=== PATIENT | male | born 1970 ===

== ENCOUNTER 2017-02-28 14:04 | Emergency (ER) | payer OTHER, SELFPAY ==
[2017-02-28 14:14] VITALS: RESP 18; TEMP 98.5; O2SAT 100; BMI 21.1
[2017-02-28] MEDS ORDERED: Sodium Chloride 0.9% 1,000 ML IV ONE (15:20)
[2017-02-28] MEDS ORDERED: Sodium Chloride 0.9% 1,000 ML ONE (15:40)
[2017-02-28 15:42] LABS: BASO % 0.7 % (0.0-2.0); EOS # 0.1 K/uL (0.0-0.7); HEMATOCRIT 47.4 % (35.0-51.0); LYMPH % 37.3 % (20.0-40.0); MEAN CELL VOLUME 89.4 fL (80.0-94.0); MEAN CORPUSCULAR HEMOGLOBIN 29.9 pg (27.0-31.0); MEAN CORPUSCULAR HGB CONC 33.4 g/dL (33.0-37.0); MEAN PLATELET VOLUME 12.8 fL (7.2-11.7); MONO # 0.4 K/uL (0.0-0.8); MONO % 7.3 % (0.0-10.0); NRBC % 0.1 % (0.0-2.0); RED CELL DISTRIBUTION WIDTH 13.8 % (11.5-14.5); WHITE BLOOD COUNT 5.3 K/uL (4.8-10.8)
[2017-02-28 15:55] LABS: RBC URINE < 1 /hpf (0-3); URINE BILIRUBIN NEGATIVE (NEGATIVE); URINE BLOOD NEGATIVE (NEGATIVE); URINE COLOR Colorless (YELLOW); URINE GLUCOSE (UA) NORMAL (Normal); URINE KETONE NEGATIVE (NEGATIVE); URINE LEUKOCYTE ESTERASE NEG Leu/uL (Negative); URINE PROTEIN NEGATIVE (NEGATIVE); URINE UROBILINOGEN NORMAL mg/dL (0.2-1.0)
[2017-02-28 15:58] LABS: CHLORIDE 99 mmol/L (98-107); SODIUM 138 mmol/L (132-148)
[2017-02-28 15:59] LABS: POTASSIUM 3.6 mmol/L (3.6-5.2)
[2017-02-28 16:01] LABS: ALB/GLOB RATIO 1.5 (1.0-2.1); ALKALINE PHOSPHATASE 69 U/L (38-126); ALT/SGPT 27 U/L (21-72); AST/SGOT 34 U/L (17-59); BILIRUBIN,TOTAL 0.6 mg/dL (0.2-1.3); BLOOD UREA NITROGEN 8 mg/dL (9-20); CARBON DIOXIDE 27 mmol/L (22-30); GFR AFRICAN-AMERICAN > 60; GLUCOSE,RANDOM 92 mg/dL (75-110); TOTAL PROTEIN 7.8 g/dL (6.3-8.3)
[2017-02-28 16:02] LABS: CALCIUM 8.9 mg/dl (8.6-10.4)
--- NOTE | 2017-02-28 16:15 | C.PDOC ---
History Of Present Illness 47 year old patient presents to the ED complaining of epigastric pain for the past 4 days. Patient states he ran out of Pepcid his PMD prescribed. He has a burning sensation in his chest. The pain is on and off, and non-radiating. Patient denies fever, chills, nausea, vomiting, or shortness of breath. Time Seen by Provider: 02/28/17 14:36 Chief Complaint (Nursing): Abdominal Pain History Per: Patient History/Exam Limitations: no limitations Onset/Duration Of Symptoms: Days (4) Current Symptoms Are (Timing): Still Present Context: Other Pain Scale Rating Of: 5 Location Of Pain/Discomfort: Epigastric Radiation Of Pain To:: None Quality Of Discomfort: "Pain" Exacerbating Factors: None Alleviating Factors: None Last Bowel Movement: Today Recent travel outside of the [place]: No Past Medical History Reviewed: Historical Data, Nursing Documentation, Vital Signs Vital Signs: Last Vital Signs Temp 98.5 F 02/28/17 14:13 Pulse 57 L 02/28/17 16:46 Resp 18 02/28/17 16:46 BP 103/62 02/28/17 16:46 Pulse Ox 100 02/28/17 16:59 Family History: States: No Known Family Hx - Social History Hx Tobacco Use: No Hx Alcohol Use: No (Former use) Hx Substance Use: No - Immunization History Hx Tetanus Toxoid Vaccination: No Hx Influenza Vaccination: No Hx Pneumococcal Vaccination: No Review Of Systems Except As Marked, All Systems Reviewed And Found Negative. Constitutional: Negative for: Fever, Chills Respiratory: Negative for: Shortness of Breath Gastrointestinal: Positive for: Abdominal Pain (epigastric). Negative for: Nausea, Vomiting, Diarrhea Physical Exam - Physical Exam Appears: Non-toxic, No Acute Distress Skin: Warm, Dry, No Rash Head: Atraumatic, Normacephalic Eye(s): bilateral: Normal Inspection, PERRL, EOMI Oral Mucosa: Moist Neck: Normal ROM, Supple Chest: Symmetrical Cardiovascular: Rhythm Regular, No Friction Rub, No Murmur Respiratory: Normal Breath Sounds, No Accessory Muscle Use, No Rales, No Rhonchi , No Wheezing Gastrointestinal/Abdominal: Bowel Sounds (active), Soft, No Tenderness, No Guarding, No Rebound Back: Normal Inspection, No CVA Tenderness Extremity: Normal ROM, No Swelling Neurological/Psych: Oriented x3, Normal Speech, Normal Cognition, Normal Motor, Normal Sensation Gait: Steady ED Course And Treatment - Laboratory Results Result Diagrams: 02/28/17 15:38 02/28/17 15:38 ECG: Interpreted By Me, Viewed By Me ECG Rhythm: Sinus Bradycardia Rate From EC (bpm) O2 Sat by Pulse Oximetry: 100 (room air) Pulse Ox Interpretation: Normal - Other Rad Obstructive series X-Ray: Interpreted by Me Interpretation: Negative chest and abdomen Progress Note: Plan: -EKG. -Labs. -Obstructive series. -Pepcid, Maalox, IV fluids, Zofran Medical Decision Making Medical Decision Making: On re-exam, the patient reports improvement of symptoms. Lungs are CTA, heart is RRR, abdomen is soft, non-tender and patient is tolerating PO well. Patient is ambulatory in the ED with steady gait. Follow up with the medical doctor within 1-2 days, Return if worsened. Disposition - Disposition Referrals: [facility] [Outside] Disposition: HOME/ ROUTINE Disposition Time: 16:56 Condition: GOOD Additional Instructions: Follow up with the medical doctor within 1-2 days, Return if worsened. Prescriptions: Famotidine [Pepcid] 20 mg PO BID #10 tab Omeprazole 20 mg PO DAILY #30 ecc Instructions: Gastritis (ED) Print Language: CAMBODIAN - Clinical Impression Clinical Impression: Abdominal pain - PA / MEDICAL CENTER DIRECTOR / Resident Statement MD/DO has reviewed & agrees with the documentation as recorded. - Scribe Statement The provider has reviewed the documentation as recorded by the Scribe Lucille Ramos All medical record entries made by the Scribe were at my direction and personally dictated by me. I have reviewed the chart and agree that the record accurately reflects my personal performance of the history, physical exam, medical decision making, and the department course for this patient. I have also personally directed, reviewed, and agree with the discharge instructions and disposition.
[2017-02-28] MEDS ORDERED: Alum-Mag Hydrox-Simethicone Susp (30 mL) PO STA (16:19)
[2017-02-28] MEDS ORDERED: Alum-Mag Hydrox-Simethicone Susp (30 mL) ONE (16:22)
[2017-02-28 16:47] VITALS: BP 103/62; PULSE 57
--- NOTE | 2017-02-28 16:48 | RAD ---
PROCEDURE: Radiographs of the chest and abdomen (obstructive series) HISTORY: abd pain COMPARISON: No prior. TECHNIQUE: AP radiograph of the chest, with upright and supine radiographs of the abdomen. FINDINGS: CHEST: Lungs: Clear. Cardiovascular: Normal size heart. No pulmonary vascular congestion. Pleura: No pleural fluid. No pneumothorax. Other findings: None. ABDOMEN AND PELVIS: Bowel: Unremarkable bowel gas pattern. No evidence of mechanical obstruction. Free air: None. Bones: Unremarkable. Other findings: None. IMPRESSION: Unremarkable radiographs of chest and abdomen. No evidence of mechanical bowel obstruction.
--- NOTE | 2017-03-07 13:38 | CARD ---
APPROVED REPORT EKG Measurement Heart [id number] 160P72 [id number] <Conclusion> Poor data quality, interpretation may be adversely affected Sinus bradycardia Otherwise normal ECG
== END 2017-02-28 17:09 | disposition home or self-care (01) ==
LOC: C.ER 14:04
DX: R10.13 Epigastric pain (principal)
CPT/HCPCS: 74022; 80053; 81001; 83690; 85025; 96361; 96374; 96375; 99284; J2405; J7040

== ENCOUNTER 2017-06-06 20:09 | Emergency (ER) | payer SELFPAY ==
[2017-06-06 20:09] VITALS: BMI 21.1
[2017-06-06] MEDS ORDERED: Sodium Chloride 0.9% 1,000 ML IV ONE (20:29)
[2017-06-06 21:10] LABS: BASO # 0.1 K/uL (0.0-0.2); BASO % 1.1 % (0.0-2.0); EOS # 0.1 K/uL (0.0-0.7); EOS % 1.8 % (0.0-4.0); LYMPH # 2.1 K/uL (1.0-4.3); LYMPH % 35.5 % (20.0-40.0); MEAN CELL VOLUME 90.8 fL (80.0-94.0); MEAN CORPUSCULAR HEMOGLOBIN 30.8 pg (27.0-31.0); MEAN PLATELET VOLUME 12.5 fL (7.2-11.7); MONO # 0.5 K/uL (0.0-0.8); MONO % 7.9 % (0.0-10.0); NRBC % 0.1 % (0.0-2.0); RED CELL DISTRIBUTION WIDTH 13.4 % (11.5-14.5); WHITE BLOOD COUNT 5.8 K/uL (4.8-10.8)
[2017-06-06 21:18] LABS: CHLORIDE 102 mmol/L (98-107)
[2017-06-06 21:19] LABS: POTASSIUM 3.7 mmol/L (3.6-5.2); SODIUM 137 mmol/L (132-148)
[2017-06-06 21:21] LABS: GFR AFRICAN-AMERICAN > 60
[2017-06-06 21:22] LABS: ALB/GLOB RATIO 1.2 (1.0-2.1); ALKALINE PHOSPHATASE 87 U/L (38-126); ALT/SGPT 59 U/L (21-72); AST/SGOT 44 U/L (17-59); BILIRUBIN,TOTAL 0.7 mg/dL (0.2-1.3); BLOOD UREA NITROGEN 12 mg/dL (9-20); CALCIUM 8.6 mg/dl (8.6-10.4); CARBON DIOXIDE 26 mmol/L (22-30); GLUCOSE,RANDOM 98 mg/dL (75-110); TOTAL PROTEIN 7.3 g/dL (6.3-8.3)
--- NOTE | 2017-06-06 21:50 | C.PDOC ---
History Of Present Illness A 47 year old male patient comes into the ED with complaints of mild headaches and dizziness for two weeks. The dizziness is intermittent and when it appears it lasts for about few seconds then it resolves. The patient denies any fever, chills, vision changes, nausea, or vomiting. Time Seen by Provider: 06/06/17 20:26 Chief Complaint (Nursing): Headache History Per: Patient History/Exam Limitations: no limitations Onset/Duration Of Symptoms: Days, Intermittent Episodes Current Symptoms Are (Timing): Still Present Quality: Aching Preceeding Symptoms: denies: Visual Disturbances Associated Symptoms: denies: Blurred Vision, Nausea, Vomiting Additional History Per: Patient Past Medical History Reviewed: Historical Data, Nursing Documentation, Vital Signs Vital Signs: Last Vital Signs Temp 97.7 F 06/06/17 20:11 Pulse 59 L 06/06/17 22:45 Resp 20 06/06/17 22:45 BP 93/40 L 06/06/17 22:45 Pulse Ox 97 06/06/17 22:45 - Medical History PMH: No Chronic Diseases Denies: Chronic Kidney Disease Surgical History: No Surg Hx Family History: States: Unknown Family Hx - Social History Hx Tobacco Use: No Hx Alcohol Use: No (Former use) Hx Substance Use: No - Immunization History Hx Tetanus Toxoid Vaccination: No Hx Influenza Vaccination: No Hx Pneumococcal Vaccination: No Review Of Systems Constitutional: Negative for: Fever, Chills Eyes: Negative for: Vision Change Gastrointestinal: Negative for: Nausea, Vomiting Neurological: Positive for: Headache, Dizziness Physical Exam - Physical Exam Appears: Non-toxic, No Acute Distress Skin: Normal Color, Warm, Dry Head: Atraumatic, Normacephalic, No Tenderness Eye(s): bilateral: Normal Inspection, PERRL, EOMI Oral Mucosa: Moist Chest: Symmetrical, No Deformity, No Tenderness Cardiovascular: Rhythm Regular, No Murmur Respiratory: Normal Breath Sounds, No Rales, No Rhonchi, No Wheezing Extremity: Normal ROM, Capillary Refill (less than two seconds ) Neurological/Psych: Oriented x3, Normal Speech, Normal Cognition Gait: Steady ED Course And Treatment - Laboratory Results Result Diagrams: 06/06/17 21:05 06/06/17 21:05 ECG: Interpreted By Me, Viewed By Me ECG Rhythm: Sinus Rhythm Interpretation Of ECG: Normal sinus rhythm of rate 69 BPM. Normal axis. Rate From EC O2 Sat by Pulse Oximetry: 98 (on RA ) Pulse Ox Interpretation: Normal Progress Note: Labs and EKG ordered. Patient received Reglan IV, Toradol IV, IV fluids. Disposition - Disposition Referrals: Luli Horvath, [Non-Staff] - Disposition: HOME/ ROUTINE Disposition Time: 22:20 Condition: GOOD Additional Instructions: Thank you for letting us take care of you today. Your provider was Dr. Randhawa. You were treated for dizziness. The emergency medical care you received today was directed at your acute symptoms. If you were prescribed any medication, please fill it and take as directed. It may take several days for your symptoms to resolve. Return to the Emergency Department if your symptoms worsen, do not improve, or if you have any other problems. Please contact your doctor or call one of the physicians/clinics you have been referred to that are listed on the Patient Visit Information form that is included in your discharge packet. Bring any paperwork you were given at discharge with you along with any medications you are taking to your follow up visit. Our treatment cannot replace ongoing medical care by a primary care provider (PCP) outside of the emergency department. Thank you for allowing the [facility] team to be part of your care today. Follow up with your doctor in 3-4 days for further evaluation and management. Prescriptions: Ibuprofen [Motrin] 600 mg PO Q6 PRN #20 tab PRN Reason: Pain, Moderate (4-7) Meclizine [Meclizine*] 25 mg PO Q6 PRN #20 tab PRN Reason: Dizziness Instructions: Dizziness (ED) Forms: Gen Discharge Inst Greenlandic, [employer] (Hungarian) Print Language: MALAY - Clinical Impression Clinical Impression: Dizziness - Scribe Statement The provider has reviewed the documentation as recorded by the Scribe (Iar Ramos) Provider Attestation: All medical record entries made by the Scribe were at my direction and personally dictated by me. I have reviewed the chart and agree that the record accurately reflects my personal performance of the history, physical exam, medical decision making, and the department course for this patient. I have also personally directed, reviewed, and agree with the discharge instructions and disposition.
[2017-06-07 00:57] VITALS: TEMP 98.1
[2017-06-07 01:05] VITALS: BP 103/62; PULSE 60; RESP 18; O2SAT 100
--- NOTE | 2017-06-09 20:57 | CARD ---
APPROVED REPORT EKG Measurement Heart [id number] [place] 160P72 [id number] <Conclusion> Normal sinus rhythm Normal ECG
== END 2017-06-07 01:13 | disposition home or self-care (01) ==
LOC: C.ER 20:09
DX: R42 Dizziness and giddiness (principal)
CPT/HCPCS: 80053; 84484; 85025; 93005; 96374; 96375; 99285; J1885; J2765; J7040

== ENCOUNTER 2017-07-19 15:34 | Emergency (ER) | payer SELFPAY ==
[2017-07-19 15:34] VITALS: BMI 21.1
[2017-07-19 15:55] VITALS: TEMP 98.7; O2SAT 97
[2017-07-19 16:18] LABS: BASO # 0.1 K/uL (0.0-0.2); EOS # 0.1 K/uL (0.0-0.7); EOS % 1.1 % (0.0-4.0); LYMPH # 2.1 K/uL (1.0-4.3); LYMPH % 35.5 % (20.0-40.0); MEAN CELL VOLUME 89.5 fL (80.0-94.0); MEAN CORPUSCULAR HEMOGLOBIN 30.6 pg (27.0-31.0); MEAN CORPUSCULAR HGB CONC 34.2 g/dL (33.0-37.0); MONO # 0.4 K/uL (0.0-0.8); NRBC % 0.1 % (0.0-2.0); RED CELL DISTRIBUTION WIDTH 13.7 % (11.5-14.5); WHITE BLOOD COUNT 5.9 K/uL (4.8-10.8)
--- NOTE | 2017-07-19 16:57 | C.PDOC ---
History Of Present Illness 47 y/o male is sent to ED from clinic for hematology referral. Pt was seen at clinic today, and was referred to the ER for evaluation of low platelet count of 68 in the blood work done on 06/06/2017. Pt states he has intermittent headache, and dizziness for the past year. Pt is currently asymptomatic. Denies any other active complaints at this time. Time Seen by Provider: 07/19/17 15:39 Chief Complaint (Nursing): Dizziness/Lightheaded History Per: Patient History/Exam Limitations: no limitations Onset/Duration Of Symptoms: Days, Intermittent Episodes Current Symptoms Are (Timing): Gone Fall Associated With With Symptoms: No Severity: None Pain Scale Rating Of: 0 Additional History Per: Patient Past Medical History Reviewed: Historical Data, Nursing Documentation, Vital Signs Vital Signs: Last Vital Signs Temp 98.7 F 07/19/17 15:50 Pulse 81 07/19/17 15:50 Resp 20 07/19/17 15:50 BP 116/73 07/19/17 15:50 Pulse Ox 97 07/19/17 16:57 Family History: States: Unknown Family Hx - Social History Hx Tobacco Use: No Hx Alcohol Use: No (Former use) Hx Substance Use: No - Immunization History Hx Tetanus Toxoid Vaccination: No Hx Influenza Vaccination: No Hx Pneumococcal Vaccination: No Review Of Systems Except As Marked, All Systems Reviewed And Found Negative. Constitutional: Negative for: Fever, Chills Cardiovascular: Negative for: Chest Pain, Palpitations Respiratory: Negative for: Cough, Shortness of Breath Gastrointestinal: Negative for: Nausea, Vomiting, Abdominal Pain Musculoskeletal: Negative for: Neck Pain, Back Pain Skin: Negative for: Rash, Bruising Neurological: Negative for: Weakness, Numbness, Headache, Dizziness Physical Exam - Physical Exam Appears: Non-toxic, No Acute Distress Skin: Warm, Dry, No Rash Head: Atraumatic, Normacephalic Eye(s): bilateral: Normal Inspection, EOMI Oral Mucosa: Moist Neck: Normal ROM, Supple Chest: Symmetrical Cardiovascular: Rhythm Regular, No Murmur Respiratory: Normal Breath Sounds, No Rales, No Rhonchi, No Wheezing Gastrointestinal/Abdominal: Soft, No Tenderness Extremity: Normal ROM, No Pedal Edema Neurological/Psych: Oriented x3, Normal Speech, No Other (no focal deficits) ED Course And Treatment - Laboratory Results Result Diagrams: 07/19/17 16:12 O2 Sat by Pulse Oximetry: 97 (on RA) Pulse Ox Interpretation: Normal Progress Note: CBC ordered and reviewed. Patient is being discharged home, with instructions to follow up with PMD/clinic in 1-2 days for further evaluation. Disposition Counseled Patient/Family Regarding: Diagnosis, Need For Followup - Disposition Referrals: Michele PAGE,MD Braulio [Staff Provider] - [facility] [Outside] [facility] [Outside] Disposition: HOME/ ROUTINE Disposition Time: 16:55 Condition: STABLE Additional Instructions: EGUIMIENTO CON HEMATOLOGA DENTRO DE 1 SEMANA DEVUELVA A LA BENJAMIN DE EMERGENCIA SI TIENE CUALQUIERA DE LOS SINTOMAS PREOCUPANTES Instructions: Thrombocytopenia (ED) Forms: [employer] (Hebrew) Print Language: POLISH - Clinical Impression Clinical Impression: Thrombocytopenia - Scribe Statement The provider has reviewed the documentation as recorded by the Scribe Benjamín Ramos All medical record entries made by the Scribe were at my direction and personally dictated by me. I have reviewed the chart and agree that the record accurately reflects my personal performance of the history, physical exam, medical decision making, and the department course for this patient. I have also personally directed, reviewed, and agree with the discharge instructions and disposition.
[2017-07-19 17:05] VITALS: BP 114/64; PULSE 75; RESP 18
== END 2017-07-19 17:05 | disposition home or self-care (01) ==
LOC: C.ER 15:34
DX: D69.6 Thrombocytopenia, unspecified (principal)

== ENCOUNTER 2018-07-31 20:10 | Emergency (ER) | payer SELFPAY ==
[2018-07-31 20:24] VITALS: BP 128/79; PULSE 69; RESP 20; TEMP 98.3; O2SAT 97
--- NOTE | 2018-07-31 20:56 | C.PDOC ---
History Of Present Illness 48 year old male presents to the ED complaining of bilateral eye itchiness and mild redness, ongoing for 2 months. Associated with some upper eyelid swelling and crusting on the lashes. Otherwise he denies any trauma, visual loss, fever, cough, sore throat, or other complaints. States he has tried flushing his eyes with water, but no medications prior to arrival. Time Seen by Provider: 07/31/18 20:37 Chief Complaint (Nursing): Eye Problem History Per: Patient History/Exam Limitations: no limitations Onset/Duration Of Symptoms: Days Current Symptoms Are (Timing): Still Present Past Medical History Reviewed: Historical Data, Nursing Documentation, Vital Signs Vital Signs: Last Vital Signs Temp 98.3 F 07/31/18 20:23 Pulse 69 07/31/18 20:23 Resp 20 07/31/18 20:23 BP 128/79 07/31/18 20:23 Pulse Ox 97 07/31/18 20:23 - Medical History PMH: Gastritis Denies: Chronic Kidney Disease Surgical History: No Surg Hx Family History: States: Unknown Family Hx - Social History Hx Tobacco Use: No Hx Alcohol Use: No (Former use) Hx Substance Use: No - Immunization History Hx Tetanus Toxoid Vaccination: No Hx Influenza Vaccination: No Hx Pneumococcal Vaccination: No Review Of Systems Except As Marked, All Systems Reviewed And Found Negative. Constitutional: Negative for: Fever, Chills Eyes: Positive for: Conjunctivae Inflammation, Eyelid Inflammation, Redness, Other (discharge/crusting + itchiness). Negative for: Vision Change ENT: Negative for: Nose Congestion, Throat Pain Respiratory: Negative for: Cough Physical Exam - Physical Exam Appears: Well, Non-toxic, No Acute Distress Skin: Warm, Dry, No Rash Head: Atraumatic, Normacephalic Eye(s): bilateral: PERRL, EOMI, Eyelid Inflammation (minimal upper eyelid inflammation, no conjunctival erythema) Oral Mucosa: Moist Neck: Normal ROM Neurological/Psych: Oriented x3, Normal Speech, Normal Cranial Nerves Gait: Steady ED Course And Treatment O2 Sat by Pulse Oximetry: 97 (RA) Pulse Ox Interpretation: Normal Medical Decision Making Medical Decision Making: Impression: Eye itchiness and discharge Plan: Patient will be discharged home with prescriptions for PO Loratadine and Patanol 0.1% drops. Patient feels comfortable going home and will be discharged. Patient given follow up instructions and referral to [facility]. Instructed to return to ER if symptoms worsen or new symptoms arise. Disposition Counseled Patient/Family Regarding: Diagnosis, Need For Followup - Disposition Referrals: Adalberto Herrera [Staff Provider] - Disposition: HOME/ ROUTINE Disposition Time: 20:58 Condition: GOOD Additional Instructions: Pk diariamente medicamentos para la alergia. Aplicar gota a los ojos diariamente. Seguimiento con oculista si no hay mejora. Prescriptions: Loratadine 10 mg PO DAILY #30 tablet Olopatadine 0.1% Opht [Patanol 0.1% Opht Soln] 5 ml OU DAILY #1 bottle NS Instructions: Conjunctivitis (Noninfectious [place]keye) (DC) Forms: [employer] [place] (Moldovan) Print Language: GERMAN - POA Present On Arrival: None - Clinical Impression Clinical Impression: Allergic conjunctivitis - PA / WEBSITE/BLOG EDITOR / Resident Statement MD/DO has reviewed & agrees with the documentation as recorded. - Scribe Statement The provider has reviewed the documentation as recorded by the Scribe (Savana Majano) All medical record entries made by the Scribe were at my direction and personally dictated by me. I have reviewed the chart and agree that the record accurately reflects my personal performance of the history, physical exam, medical decision making, and the department course for this patient. I have also personally directed, reviewed, and agree with the discharge instructions and disposition.
== END 2018-07-31 21:03 | disposition home or self-care (01) ==
LOC: C.ER 20:10
DX: H10.10 Acute atopic conjunctivitis, unspecified eye (principal)